=== PATIENT | male | born 1990 | race Native Hawaiian/Other Pacific Islander ===

== ENCOUNTER → 2018-04-17 | Outpatient (CLI) | payer OTHER ==
[~2018-04-17] MED LIST: IBUP1TAB7 PO; TRAM50TA PO
--- NOTE | 2018-04-17 14:32 | RADRPT ---
EXAM DATE: 04/17/2018 11:32 AM EDT AGE/SEX: 27 years / Male INDICATIONS: Testicular pain. CLINICAL DATA: This is the patient's initial encounter. Patient reports that signs and symptoms have been present for 4 - 6 months and indicates a pain score of 5/10. MEDICAL/SURGICAL HISTORY: . Testicular pain. None. COMPARISON: No prior [place] exams available for comparison. No external comparison. MEASUREMENTS (cm x cm x cm): Right Testicle:__3.3 x 3.4 x 2.0 cm Left Testicle:__2.6 x 3.4 x 2.3 cm FINDINGS: Right Testicle: Homogeneous echotexture without intra or extratesticular mass. Blood flow is symmet marielena and within normal limits. No hydrocele. There is a varicocele. Epididymis is within normal limi ts. Left Testicle: Homogeneous echotexture without intra or extratesticular mass. Blood flow is symmetr ic and within normal limits. No hydrocele. There is a varicocele. Epididymis is within normal limit s. Scrotum: Within normal limits. CONCLUSION: 1. Testicles appear unremarkable. Normal flow. 2. Bilateral varicoceles, slightly more prominent on the left. Electronically signed by: Ace Bowman MD 04/17/2018 2:31 PM EDT
== END ==
LOC: HRAD 10:19
PROVIDERS: ATTEND Urology
DX: N50.819 Testicular pain, unspecified (principal)
CPT/HCPCS: 76870; 93975